=== PATIENT | male | born 1945 | race Caucasian/White ===

== ENCOUNTER 2023-05-15 18:26 | Emergency (ER) | payer MEDICARE, OTHER ==
[~2023-05-15] VITALS: Ht 172.7 cm; Wt 95.3 kg
[2023-05-15] MEDS ORDERED: IBUP-1955 PO (21:26)
[2023-05-16 01:43] VITALS: BP 138/82; TEMP 98.2; O2SAT 100
== END 2023-05-16 01:49 | disposition home or self-care (01) ==
LOC: ER 18:36
DX: S82.832A Other fracture of upper and lower end of left fibula, initial encounter for closed fracture (principal); F10.10 Alcohol abuse, uncomplicated; R51.9 Headache, unspecified; F20.9 Schizophrenia, unspecified; W01.0XXA Fall on same level from slipping, tripping and stumbling without subsequent striking against object, initial encounter; Y93.89 Activity, other specified; Y92.89 Other specified places as the place of occurrence of the external cause; Y99.8 Other external cause status; Y90.9 Presence of alcohol in blood, level not specified
CPT/HCPCS: 70450-TC; 73590-TC; 73610-TC